=== PATIENT | female | born 1995 | race Caucasian/White ===

== ENCOUNTER 2017-06-17 21:54 | Emergency (ER) | payer MEDICAID | END 2017-06-17 23:50 | disposition left against medical advice (07) | LOC: ER 22:59 | DX: Z53.21 Procedure and treatment not carried out due to patient leaving prior to being seen by health care provider (principal) ==

== ENCOUNTER 2018-04-12 23:37 | Emergency (ER) | payer MEDICAID ==
[~2018-04-12] VITALS: Ht 162.6 cm; Wt 93.3 kg
[2018-04-13 00:23] VITALS: BP 124/75
== END 2018-04-13 01:00 | disposition left against medical advice (07) ==
LOC: ER 23:37
DX: Z53.21 Procedure and treatment not carried out due to patient leaving prior to being seen by health care provider (principal)

== ENCOUNTER 2018-04-16 23:32 | Emergency (ER) | payer MEDICAID ==
[~2018-04-16] VITALS: Ht 162.6 cm; Wt 91.0 kg
[2018-04-17] MEDS ORDERED: METOCLOPRAMIDE HCL 10MG/2ML VIAL IV ONE (01:15)
[2018-04-17] MEDS ORDERED: FAMOTIDINE 20MG/2ML VIAL IV ONE (01:15)
[2018-04-17 01:42] LABS: BASOPHILS % 0.7 % (0.0-2.0); EOSINOPHILS % 1.5 % (0.0-5.0); HEMATOCRIT. 43.5 % (36.0-48.0); HEMOGLOBIN. 14.5 g/dL (12.0-16.0); MEAN CORPUSCULAR HEMOGLOBIN 31.4 pg (28.0-32.0); MEAN CORPUSCULAR VOLUME 94.3 fL (81.0-99.0); MEAN PLATELET VOLUME 8.7 fl (7.4-10.4); MONOCYTES % 8.3 % (2.0-8.0); NEUTROPHILS % 62.5 % (40.0-76.0); PLATELET 301 x1000/uL (130-400); RED BLOOD CELL COUNT 4.62 mill/uL (4.2-5.4)
[2018-04-17 01:43] LABS: CHLORIDE 106 mEq/L (98-107)
[2018-04-17] MEDS ORDERED: METOCLOPRAMIDE HCL 10MG/2ML VIAL IV NR (03:15)
[2018-04-17] MEDS ORDERED: FAMOTIDINE 20MG/2ML VIAL IV NR (03:15)
[2018-04-17 04:08] VITALS: BP 112/62
== END 2018-04-17 06:20 | disposition home or self-care (01) ==
LOC: ER 23:32
DX: K21.9 Gastro-esophageal reflux disease without esophagitis (principal); F41.9 Anxiety disorder, unspecified
CPT/HCPCS: 36415; 76705; 80048; 85025; 93005; 96374; 96375; 99285; J2765; J3490; Z7610

== ENCOUNTER 2019-04-02 15:47 | Emergency (ER) | payer MEDICAID ==
[~2019-04-02] VITALS: Ht 165.1 cm; Wt 90.0 kg
[2019-04-02] MEDS ORDERED: TETANUS, DIPHTHERIA, PERTUSSIS VAC/PF 0.5ML (>7YR OLD) IM ONE (17:45)
[2019-04-02] MEDS ORDERED: IBUPROFEN 600MG TABLET PO ONE (17:45)
[2019-04-02 17:53] VITALS: BP 122/59
== END 2019-04-02 18:08 | disposition home or self-care (01) ==
LOC: ER 15:47
DX: L02.413 Cutaneous abscess of right upper limb (principal); F41.9 Anxiety disorder, unspecified; Z88.1 Allergy status to other antibiotic agents; W57.XXXA Bitten or stung by nonvenomous insect and other nonvenomous arthropods, initial encounter; Y93.89 Activity, other specified; Y92.89 Other specified places as the place of occurrence of the external cause; Y99.8 Other external cause status
CPT/HCPCS: 90471; 90715; 99283

== ENCOUNTER 2021-12-25 12:27 | Emergency (ER) | payer MEDICAID, OTHER ==
[~2021-12-25] VITALS: Ht 165.1 cm; Wt 91.0 kg
[2021-12-25 12:29] VITALS: BP 110/73
[2021-12-25] MEDS ORDERED: ONDANSETRON 4MG ODT PO STA (12:36)
== END 2021-12-25 17:04 | disposition left against medical advice (07) ==
LOC: ER 12:27
DX: R11.0 Nausea (principal); I49.9 Cardiac arrhythmia, unspecified; Z53.21 Procedure and treatment not carried out due to patient leaving prior to being seen by health care provider
CPT/HCPCS: 93005